=== PATIENT | female | born 1955 | race Caucasian/White ===

== ENCOUNTER → 2017-02-23 | Outpatient (CLI) | payer OTHER ==
[~2017-02-23] MED LIST: ACCUNEB SO1.25 MG/1 INH; ACYCLOVIR 200200 MG; ACYCLOVIR 200200 MG PO; ALBUTEROL INHAL17 GM; ALDACTONE25 MG PO; ALPHA LIPOIC A300 MG PO; ATIVAN1 MG; BENTYL 10 MG CA10 MG; BENTYL 10 MG CA10 MG PO; CEFDINIR300 MG PO; CENTRUM COMPLE1 EACH; CENTRUM SILVER1 EAC4 PO; CLONAZEPAM 1 MG1 M1; CO Q-10100 MG PO; COLACE 100 MG100 MG PO; CYCLOBENZAPRINE10 MG PO; CYMBALTA60 MG; CYMBALTA60 MG PO; DILANTIN 100 M100 MG; DILANTIN100 MG; DILANTIN100 MG PO; ENOXAPARIN40 MG/0.1 SUBQ; FLONASE 0.05%50 MCG NASAL; FLONASE16 GM; IBUPROFEN 800800 M1 PO; LASIX 40 MG TAB40 M1; LASIX 40 MG TAB40 M1 PO; LIDODERM 5%1 PATCH; LUTEIN-ZEAXANT1 EACH PO; MEDROLDOSEPACK PO; MIRAPEX 0.250.25 M1; MIRAPEX 0.250.25 M1 PO; MUCINEX600 MG PO; NEURONTIN 300300 M1 PO; NEURONTIN600 MG; NEURONTIN600 MG PO; NEXIUM40 MG PO; OCUVITE TABLET1 EAC1 PO; PRAVACHOL40 MG PO; PREVACID15 MG; SULFASALAZINE500 M1; SULFASALAZINE500 M4; SUPER B COMPLE150 MG PO; TIZANIDINE HCL4 M1 PO; TIZANIDINE HCL4 MG; TRILIPIX135 MG; TUSSIONEX PENNKI1 ML PO; VICODIN ES TAB1 EACH; VICODIN HP 10-1 EAC1 PO; VITAMIN D-32000 UNIT PO; VITAMIN D32000 UNI1; VITAMIN E400 UNIT PO; WELLBUTRIN SR150 MG PO; ZANTAC 150MG T150 MG PO; ZANTAC300 MG PO; ZOLOFT100 MG; ZYRTEC10 M5 PO
== END ==
LOC: RAD 16:17
DX: M47.816 Spondylosis without myelopathy or radiculopathy, lumbar region (principal); M43.8X6 Other specified deforming dorsopathies, lumbar region

== ENCOUNTER → 2020-08-07 | Outpatient (CLI) | payer OTHER | LOC: CAT 11:24 | PROVIDERS: ATTEND Internal Medicine Cardiovascular Disease | DX: Z13.6 Encounter for screening for cardiovascular disorders (principal); I25.10 Atherosclerotic heart disease of native coronary artery without angina pectoris; E78.00 Pure hypercholesterolemia, unspecified ==

== ENCOUNTER → 2020-08-07 | Outpatient (CLI) | payer OTHER | LOC: SJCVC 10:46 | PROVIDERS: ATTEND Internal Medicine Cardiovascular Disease | DX: R94.31 Abnormal electrocardiogram [ECG] [EKG] (principal); E78.00 Pure hypercholesterolemia, unspecified; G45.9 Transient cerebral ischemic attack, unspecified; Z87.898 Personal history of other specified conditions ==

== ENCOUNTER → 2021-03-26 | Outpatient (CLI) | payer OTHER | LOC: SJCVC 09:13 | PROVIDERS: ATTEND Internal Medicine Cardiovascular Disease | DX: R94.31 Abnormal electrocardiogram [ECG] [EKG] (principal); I49.1 Atrial premature depolarization; R93.1 Abnormal findings on diagnostic imaging of heart and coronary circulation; I47.1 Supraventricular tachycardia; E78.00 Pure hypercholesterolemia, unspecified; I10 Essential (primary) hypertension; R42 Dizziness and giddiness; G47.30 Sleep apnea, unspecified; E78.5 Hyperlipidemia, unspecified; K57.92 Diverticulitis of intestine, part unspecified, without perforation or abscess without bleeding; R00.2 Palpitations; M43.10 Spondylolisthesis, site unspecified; M19.90 Unspecified osteoarthritis, unspecified site; J45.909 Unspecified asthma, uncomplicated; Z86.73 Personal history of transient ischemic attack (TIA), and cerebral infarction without residual deficits; Z82.49 Family history of ischemic heart disease and other diseases of the circulatory system; Z79.82 Long term (current) use of aspirin; Z79.891 Long term (current) use of opiate analgesic; Z79.899 Other long term (current) drug therapy; Z88.1 Allergy status to other antibiotic agents; Z88.5 Allergy status to narcotic agent; Z88.0 Allergy status to penicillin ==